=== PATIENT | female | born 1945 | race Caucasian/White ===

== ENCOUNTER 2016-10-10 17:19 | Emergency (ER) | payer MEDICARE, OTHER ==
[~2016-10-10] VITALS: Ht 162.6 cm; Wt 77.1 kg
[2016-10-10 18:53] LABS: Basophils # (auto) 0 uL; Basophils % (auto) 0.5 % (0.0-2.0); CONDITION Y; Eosinophils # (auto) 0.2 uL; Eosinophils % (auto) 1.6 % (0.0-7.0); Hematocrit 42.2 % (36.0-46.0); Hemoglobin 14.1 g/dL (12.2-16.2); Lymphocytes # (auto) 1.2 uL; Lymphocytes % (auto) 12.4 % (10.0-50.0); Mean Corpuscular Hemoglobin 29.5 pg (28.0-32.0); Mean Corpuscular Hgb Conc. 33.4 g/dL (32.0-36.0); Mean Corpuscular Volume 88.5 fL (80.0-100.0); Mean Platelet Volume 9.4 fL (7.4-10.4); Monocytes # (auto) 0.7 uL; Monocytes % (auto) 7.6 % (0.0-12.0); Neutrophils # (auto) 7.6 uL; Neutrophils % (auto) 77.9 % (37.0-80.0); Platelet Count (auto) 269 10^3/uL (140-450); Red Cell Distribution Width 14.4 % (11.6-16.0); White Blood Cell 9.7 10^3/uL (4.4-10.8)
[2016-10-10 19:09] LABS: Albumin 3.6 g/dL (3.4-5.0); Anion Gap 10 (5-15); Aspartate Aminotransferase 12 U/L (15-37); BUN/Creatinine Ratio 14.3; Blood Urea Nitrogen 12 mg/dL (7-18); Calcium 9.5 mg/dL (8.5-10.1); Carbon Dioxide 26 mmol/L (21-32); Chloride 106 mmol/L (98-107); GFR African American 86 mL/min; GFR Non-African American 71 mL/min; Glucose 103 mg/dL (74-106); Potassium 3.4 mmol/L (3.5-5.1); Sodium 142 mmol/L (136-145)
[2016-10-10 19:13] LABS: Alkaline Phosphatase 117 U/L (45-117); Bilirubin, Total 0.6 mg/dL (0.2-1.0); Total Protein 7.5 g/dL (6.4-8.2)
[2016-10-10 20:31] LABS: INR 0.98 (0.9-1.15); Prothrombin Time 10.7 sec (9.37-12.3)
[2016-10-10 21:13] LABS: B-Type Natriuretic Peptide 9.8 pg/mL (0-100); Temperature: 22.4 C (20.0-25.0)
[2016-10-10 21:26] VITALS: BP 155/97
[2016-10-10] MEDS ORDERED: CLINDAMYCIN 600MG IV 50 ML IV ONE (21:45)
[2016-10-10] MEDS ORDERED: cefTRIAXone 1GM/50ML D5W 50 ML IV ONE (21:45)
[2016-10-10 21:56] LABS: Urine Bilirubin Negative (Negative); Urine Blood Negative /uL (Negative); Urine Color Yellow (Yellow); Urine Glucose Normal (Normal); Urine Ketone Negative (Negative); Urine Nitrite Negative (Negative); Urine RBC <1 /hpf (0 - 4); Urine Squamous Epithelial Cell FEW /hpf (<5); Urine Urobilinogen Normal (Negative); Urine pH 7.5 (5.0-8.0)
[2016-10-10] MEDS ORDERED: ONDANSETRON HCL 4 MG/2 ML VIAL IV ONE (22:15)
[2016-10-10] MEDS ORDERED: HYDROmorphone HCL 2 MG/ML VL IV ONE (22:15)
== END 2016-10-11 00:35 | disposition home or self-care (01) ==
LOC: EDBD 17:19 → ER 17:23
DX: L03.115 Cellulitis of right lower limb (principal); L03.116 Cellulitis of left lower limb; F17.210 Nicotine dependence, cigarettes, uncomplicated; I11.0 Hypertensive heart disease with heart failure; I50.9 Heart failure, unspecified; E07.9 Disorder of thyroid, unspecified
CPT/HCPCS: 36415; 51702; 71010; 80053; 81001; 82962; 83735; 83880; 84443; 84484; 85025; 85610; 85730; 93005; 93970; 96365; 96367; 96375; 99285; J0696; J1170; J2405; J3490

== ENCOUNTER 2017-06-29 13:07 | Inpatient (IN) | payer MEDICARE, OTHER ==
[~2017-06-29] VITALS: Ht 162.6 cm; Wt 76.3 kg
[2017-06-29] MEDS ORDERED: SODIUM CHLORIDE 0.9% 1,000 ML IV ONE (16:47)
[2017-06-29] MEDS ORDERED: cefTRIAXone 1GM/10ml IVPUSH 10 ML IV ONE (17:00)
[2017-06-29 17:34] LABS: Basophils # (auto) 0.1 uL; Eosinophils # (auto) 0.2 uL; Eosinophils % (auto) 2.2 % (0.0-7.0); Hematocrit 41.9 % (36.0-46.0); Hemoglobin 14.1 g/dL (12.2-16.2); Lymphocytes # (auto) 1.4 uL; Mean Corpuscular Hemoglobin 29.8 pg (28.0-32.0); Mean Corpuscular Hgb Conc. 33.7 g/dL (32.0-36.0); Mean Corpuscular Volume 88.5 fL (80.0-100.0); Monocytes # (auto) 0.6 uL; Monocytes % (auto) 8.8 % (0.0-12.0); Neutrophils # (auto) 4.9 uL; Nucleated Red Blood Cells % 0.1 %; Platelet Count (auto) 247 10^3/uL (140-450); Red Blood Cells 4.73 10^6/uL (4.0-5.20); Red Cell Distribution Width 13.6 % (11.8-14.3); White Blood Cell 7.1 10^3/uL (4.4-10.8)
[2017-06-29 17:35] LABS: Urine Amorphous Crystal FEW /hpf (None Seen); Urine Bacteria FEW /hpf (None Seen); Urine Blood Negative /uL (Negative); Urine Mucus FEW (None Seen); Urine Specific Gravity 1.015 (1.001-1.035); Urine WBC 28 /hpf (0 - 5)
[2017-06-29 17:52] LABS: Albumin 3.6 g/dL (3.4-5.0); BUN/Creatinine Ratio 16.5; Calcium 9.4 mg/dL (8.5-10.1); Magnesium 2.1 mg/dL (1.6-2.6); Potassium 3.5 mmol/L (3.5-5.1)
[2017-06-29 17:55] LABS: Bilirubin, Total 0.9 mg/dL (0.2-1.0); Total Protein 7.2 g/dL (6.4-8.2)
[2017-06-29] MEDS ORDERED: LORazepam 0.5 MG TAB PO PRN (18:30)
[2017-06-29] MEDS ORDERED: LACTULOSE 20Gm/30ML SOLN PO PRN (18:30)
[2017-06-29] MEDS ORDERED: MORPHINE SULFATE 4 MG/ML SYR/VIAL IV PRN (18:30)
[2017-06-29] MEDS ORDERED: TEMAZEPAM 15 MG CAP PO PRN (18:30)
[2017-06-29] MEDS ORDERED: ACETAMINOPHEN 500 MG TAB PO PRN (18:30)
[2017-06-29] MEDS ORDERED: PROMETHAZINE HCL 25 MG/ML 1ML IV PRN (18:30)
[2017-06-29] MEDS ORDERED: NITROGLYCERIN 0.4 MG SL TAB SL PRN (18:30)
[2017-06-29] MEDS: MORPHINE SULFATE 4 MG/ML SYR/VIAL IV PRN (20:09)
[2017-06-29] MEDS ORDERED: FURO40TA PO (21:27)
[2017-06-29] MEDS ORDERED: LEVO75TA47 PO (21:27)
[2017-06-29] MEDS ORDERED: SERT-138 PO (21:27)
[2017-06-29] MEDS ORDERED: ASPI-498 PO (21:27)
[2017-06-29 22:06] VITALS: BP 118/84
[2017-06-29] MEDS: CLINDAMYCIN 600MG IV 50 ML IV SCH (23:24)
[2017-06-30] MEDS: CLINDAMYCIN 600MG IV 50 ML IV SCH ×3 (05:51→21:56)
[2017-06-30 05:53] VITALS: BP 127/75
[2017-06-30 08:50] VITALS: BP 130/76
[2017-06-30] MEDS: cefTRIAXone 1GM/10ml IVPUSH 10 ML IV SCH (08:50)
[2017-06-30] MEDS: HYDROcodone-ACET 5/325MG TAB PO PRN (08:51)
[2017-06-30] MEDS: ENOXAPARIN SOD 40 MG/0.4 ML SYRINGE SC SCH (10:33)
[2017-06-30] MEDS ORDERED: POTASSIUM CHL 20 Meq TABLET PO ONE (12:30)
[2017-06-30] MEDS ORDERED: FUROSEMIDE 40 MG/4 ML VIAL IV ONE (12:30)
[2017-06-30 13:00] VITALS: BP 114/68
[2017-06-30 17:08] VITALS: BP 114/72
[2017-06-30 22:00] VITALS: BP 131/65
[2017-07-01] MEDS: HYDROcodone-ACET 5/325MG TAB PO PRN (00:44)
[2017-07-01] MEDS: MORPHINE SULFATE 4 MG/ML SYR/VIAL IV PRN (04:20)
[2017-07-01 05:45] VITALS: BP 118/78
[2017-07-01] MEDS: CLINDAMYCIN 600MG IV 50 ML IV SCH (06:33)
[2017-07-01 09:00] VITALS: BP 101/60
[2017-07-01] MEDS: cefTRIAXone 1GM/10ml IVPUSH 10 ML IV SCH (09:08)
[2017-07-01] MEDS ORDERED: FUROSEMIDE 40 MG/4 ML VIAL IV SCH (10:00)
[2017-07-01] MEDS ORDERED: POTASSIUM CHL 20 Meq TABLET PO SCH (10:00)
[2017-07-01] MEDS: ENOXAPARIN SOD 40 MG/0.4 ML SYRINGE SC SCH (11:32)
[2017-07-01 13:00] VITALS: BP 103/60
== END 2017-07-01 17:20 | disposition home or self-care (01) | DRG 603 ==
LOC: ER 13:07 → EDSEX 13:07 → EDUNIT# 13:07 → EDBD 13:07 → OVERFLOW 13:08 → EAST 20:50
PROVIDERS: ADMIT Internal Medicine; ATTEND Family Medicine
DX: L03.115 Cellulitis of right lower limb (principal); I11.0 Hypertensive heart disease with heart failure; F03.90 Unspecified dementia, unspecified severity, without behavioral disturbance, psychotic disturbance, mood disturbance, and anxiety; I50.9 Heart failure, unspecified; N39.0 Urinary tract infection, site not specified; E03.9 Hypothyroidism, unspecified; L03.116 Cellulitis of left lower limb; F17.210 Nicotine dependence, cigarettes, uncomplicated; S90.212A Contusion of left great toe with damage to nail, initial encounter; E66.09 Other obesity due to excess calories; I87.2 Venous insufficiency (chronic) (peripheral); X58.XXXA Exposure to other specified factors, initial encounter; Y93.89 Activity, other specified; Y92.89 Other specified places as the place of occurrence of the external cause; Y99.8 Other external cause status; Z68.28 Body mass index [BMI] 28.0-28.9, adult
CPT/HCPCS: 36415; 71045; 73630; 80053; 81001; 83735; 83880; 84443; 85025; 85379; 87040; 87086; 87088; 87186; 87205; 93005; 93306; 93970; 96361; 96374; 96375; J3490

== ENCOUNTER 2021-05-14 16:22 | Emergency (ER) | payer MEDICARE, OTHER ==
[~2021-05-14] VITALS: Ht 160 cm; Wt 68.0 kg
[~2021-05-14 16:22] MED LIST: ASPI-498 PO; FURO1TAB31 PO; LEVO75TA47 PO; SERT50TA PO
[2021-05-14] MEDS ORDERED: SODIUM CHLORIDE 0.9% 1,000 ML IV ONE (16:45)
[2021-05-14 18:32] LABS: Basophils # (auto) 0.1 10 ^3/uL (0-0.2); Basophils % (auto) 0.7 % (0.0-2.0); Eosinophils # (auto) 0 10 ^3/uL (0-0.8); Eosinophils % (auto) 0.4 % (0.0-7.0); Hemoglobin 15.7 g/dL (12.2-16.2); Lymphocytes # (auto) 0.8 10 ^3/uL (0.4-5.4); Lymphocytes % (auto) 7.2 % (10.0-50.0); Mean Corpuscular Hemoglobin 29.9 pg (28.0-32.0); Mean Corpuscular Hgb Conc. 33.4 g/dL (32.0-36.0); Mean Corpuscular Volume 89.8 fL (80.0-100.0); Monocytes # (auto) 0.7 10 ^3/uL (0-1.3); Monocytes % (auto) 5.7 % (0.0-12.0); Neutrophils # (auto) 10.2 10 ^3/uL (1.6-8.6); Nucleated Red Blood Cells % 0.1 %; Red Blood Cells 5.23 10^6/uL (4.0-5.20); Red Cell Distribution Width 15.4 % (11.8-14.3); White Blood Cell 11.8 10^3/uL (4.4-10.8)
[2021-05-14 18:47] LABS: Albumin 2.8 g/dL (3.4-5.0); Calcium 9.6 mg/dL (8.5-10.1); Potassium 3.7 mmol/L (3.5-5.1)
[2021-05-14 18:54] LABS: BUN/Creatinine Ratio 32.1; Bilirubin, Total 0.6 mg/dL (0.2-1.0); Total Protein 6.6 g/dL (6.4-8.2)
[2021-05-14 20:15] LABS: Urine Bacteria FEW /hpf (None Seen); Urine Blood 2+ /uL (Negative); Urine Mucus FEW (None Seen); Urine Specific Gravity 1.016 (1.001-1.035); Urine WBC 3878 /hpf (0 - 5)
[2021-05-14 20:17] LABS: Alcohol, Urine < 3.0 mg/dL (0-10); Amphetamine Screen, Urine NEGATIVE (NEGATIVE); Barbiturate Scree,Urine NEGATIVE (NEGATIVE); Benzodiazephine Screen, Urine NEGATIVE (NEGATIVE); Cannabinoid Screen, Urine NEGATIVE (NEGATIVE); Cocaine Screen, Urine NEGATIVE (NEGATIVE); Opiate Scree,Urine POSITIVE (NEGATIVE); Phencyclidine Screen, Urine NEGATIVE (NEGATIVE)
[2021-05-14] MEDS ORDERED: NITR-87 PO (21:59)
[2021-05-14] MEDS ORDERED: NITROFURANTOIN 100 mg CAP PO ONE (22:30)
[2021-05-15] MEDS: HYDROcodone-ACET 5/325MG TAB PO ONE ×2 (05:24→05:33)
[2021-05-15] MEDS ORDERED: diphenhdrAMINE HCL 50 MG/1 ML VL IV ONE (08:00)
[2021-05-15 10:16] VITALS: BP 125/60
== END 2021-05-15 14:45 | disposition home or self-care (01) ==
LOC: EDBD 16:22 → ER 16:24
DX: T50.901A Poisoning by unspecified drugs, medicaments and biological substances, accidental (unintentional), initial encounter (principal); I11.0 Hypertensive heart disease with heart failure; I50.9 Heart failure, unspecified; R41.82 Altered mental status, unspecified; F17.210 Nicotine dependence, cigarettes, uncomplicated; Y92.89 Other specified places as the place of occurrence of the external cause
CPT/HCPCS: 36415; 70450; 71045; 80053; 80307; 81001; 83880; 84484; 85025; 93005; 96361; 96374; 99285; J1200; J7030